=== PATIENT | female | born 1960 | race Caucasian/White ===

== ENCOUNTER 2017-02-11 11:36 | Emergency (ER) | payer OTHER ==
[2017-02-11] MEDS ORDERED: Adacel (T-DAP) 0.5 ML VIAL ONE (12:19)
[2017-02-11] MEDS ORDERED: Lidocaine 1% PF 5 ML VIAL ONE (13:03)
[2017-02-11] MEDS ORDERED: Lidocaine 1% w/Epinephrine 1:100K 20 ML VIAL ONE (13:05)
[2017-02-11] MEDS ORDERED: Bacitracin Zinc 1 Packet ONE (13:47)
== END 2017-02-11 14:00 | disposition home or self-care (01) ==
LOC: ERS 11:36
DX: S01.111A Laceration without foreign body of right eyelid and periocular area, initial encounter (principal); Z23 Encounter for immunization; X58.XXXA Exposure to other specified factors, initial encounter
CPT/HCPCS: 12011; 90471; 90715; J2001